=== PATIENT | male | born 1985 | race Caucasian/White ===

== ENCOUNTER 2021-01-17 23:20 | Emergency (ER) | payer OTHER ==
[~2021-01-17] VITALS: Ht 175.3 cm; Wt 99.8 kg
[2021-01-18] MEDS ORDERED: PROMETH-CODEIN 65 ML PO (00:24)
[2021-01-18 00:30] VITALS: BP 134/65
== END 2021-01-18 00:30 | disposition home or self-care (01) ==
LOC: M.ERS 23:20
DX: J02.8 Acute pharyngitis due to other specified organisms (principal)